=== PATIENT | female | born 1970 | race African-American/Black ===

== ENCOUNTER 2018-09-26 12:10 | Emergency (ER) | payer SELFPAY ==
[~2018-09-26] VITALS: Ht 180.3 cm; Wt 83.9 kg
[~2018-09-26 12:10] MED LIST: NAPR-683 PO; OXYC1TAB15 PO; PENI500T PO
[2018-09-26] MEDS ORDERED: IV NORMAL SALINE 1000ML BAG 1,000 ML IV ONE (13:45)
[2018-09-26] MEDS ORDERED: ONDANSETRON PF 4 MG/2 ML VIAL. IV ONE (13:45)
[2018-09-26 13:49] LABS: BASO % 1 % (0-3); EOS # 0.1 x10^3/uL (0.0-0.7); EOS % 1 % (0-3); HEMATOCRIT 39.1 % (36.0-47.0); HEMOGLOBIN 13.3 g/dL (12.0-15.5); LYMPH # 1.9 x10^3/uL (1.0-4.8); LYMPH % 42 % (24-48); MEAN CORPUSCULAR HEMOGLOBIN 32 pg (25-35); MEAN CORPUSCULAR HGB CONC 34 g/dL (31-37); MEAN CORPUSCULAR VOLUME 93 fL (79-100); MONO # 0.4 x10^3/uL (0.0-1.1); MONO % 9 % (0-9); NEUT # 2.2 x10^3uL (1.8-7.7); NEUT % 47 % (31-73); PLATELET COUNT 300 x10^3/uL (140-400); RED BLOOD COUNT 4.21 x10^6/uL (3.50-5.40); RED CELL DISTRIBUTION WIDTH 14.4 % (11.5-14.5); WHITE BLOOD COUNT 4.6 x10^3/uL (4.0-11.0)
[2018-09-26 14:14] LABS: CALCIUM 9.2 mg/dL (8.5-10.1); GFR 71.6; POTASSIUM 4.1 mmol/L (3.5-5.1)
[2018-09-26 14:20] LABS: ALBUMIN 3.6 g/dL (3.4-5.0); ALBUMIN/GLOBULIN RATIO 0.8 (1.0-1.7); TOTAL BILIRUBIN 0.2 mg/dL (0.2-1.0)
[2018-09-26] MEDS ORDERED: IOHEXOL 300 MG/ML 100ML VIAL. IV ONE (14:30)
[2018-09-26] MEDS ORDERED: CONTRAST GIVEN. MC PRN (14:30)
--- NOTE | 2018-09-26 15:01 | RAD ---
CT ABD PELV W/ IV CONTRST ONLY Indication: Abdominal pain. Nausea and vomiting. Exposure: One or more of the following individualized dose reduction techniques were utilized for this examination: 1. Automated exposure control 2. Adjustment of the mA and/or kV according to patient size 3. Use of iterative reconstruction technique. Technique: Intravenous contrast was given. No oral contrast per request. Lung bases are clear. There is some mild nodularity at the left posterior subpleural lung probably just due to some focal atelectasis/consolidation. Liver and spleen unremarkable. Pancreas unremarkable. No evidence of adrenal mass. Kidneys demonstrate symmetric enhancement without evidence of hydronephrosis or focal mass. Gallbladder is contracted without calcified stone. The aorta is nonaneurysmal. No significant lymph node enlargement. No evidence of an acute colitis. No significant small bowel distention. The appendix is visualized and is not distended, measuring about 6 mm in diameter. No inflammatory type changes. No significant ascites. No evidence of pneumoperitoneum. Mild degenerative changes of the spine. Degenerative changes of both hips. Transitional anatomy at the lumbosacral junction. No The urinary bladder demonstrates wall thickening diffusely. No definite pelvic mass that lack of fatty separation pelvis could make detection difficult by CT. IMPRESSION: 1. Mild nodularity along the posterior left pleural surface, may just be due to some focal consolidation/atelectasis. Depending on patient risk factors, follow-up outpatient CT chest could be considered. 2. Urinary bladder wall thickening. Correlate for cystitis. 3. No other acute findings are seen. Electronically signed by: Ventura Solis MD (09/26/2018 2:57 PM) [facility]
[2018-09-26 16:18] LABS: BILIRUBIN,URINE NEGATIVE (NEG); CLARITY,URINE CLEAR; COLOR,URINE YELLOW; NITRITE,URINE NEGATIVE (NEG); PROTEIN,URINE NEGATIVE (NEG-TRACE); UROBILINOGEN,URINE 0.2 mg/dL (0.2 mg/dL)
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
[2018-09-26 16:25] LABS: AMPHETAMINE/METHAMPHETAMINE NEG (NEG); BARBITURATES NEG (NEG); BENZODIAZEPINES NEG (NEG); CANNABINOIDS NEG (NEG); COCAINE POS (NEG); METHADONE NEG (NEG); OPIATES NEG (NEG); PHENCYCLIDINE POS (NEG)
[2018-09-26 16:50] LABS: BACTERIA,URINE FEW /HPF (0-FEW); SQUAMOUS EPITHELIAL CELL,UR MANY /LPF; TRICHOMONAS,URINE PRESENT
[2018-09-26] MEDS ORDERED: metroNIDAZOLE 500 MG TABLET PO ONE (17:15)
[2018-09-26] MEDS ORDERED: AZITHROMYCIN 250 MG TABLET. PO ONE (17:15)
[2018-09-26] MEDS ORDERED: cefTRIAXone IM 250 MG VIAL IM ONE (17:15)
[2018-09-26 17:44] VITALS: BP 125/85
[2018-09-26] MEDS ORDERED: DOXY100T9 PO (17:53)
[2018-09-26] MEDS ORDERED: ONDA4TAB7 PO (17:53)
== END 2018-09-26 17:58 | disposition home or self-care (01) ==
LOC: ER 12:10
DX: A59.01 Trichomonal vulvovaginitis (principal); R11.2 Nausea with vomiting, unspecified; R19.7 Diarrhea, unspecified; R10.9 Unspecified abdominal pain; F10.20 Alcohol dependence, uncomplicated; Y90.0 Blood alcohol level of less than 20 mg/100 ml; Z98.890 Other specified postprocedural states
CPT/HCPCS: 36415; 74177; 80053; 80307; 81001; 81025; 83690; 85025; 96361; 96372; 96374; 99285; G0480; J0696; J2405; J7030; Q0144; Q9967